=== PATIENT | male | born 1975 | race Caucasian/White ===

== ENCOUNTER 2018-05-03 17:19 | Emergency (ER) | payer MEDICAID ==
[2018-05-03] MEDS ORDERED: Acetaminophen/oxyCODONE 325-5 MG Tab PO ONE ×2 (18:19→19:17)
[2018-05-03] MEDS ORDERED: Levofloxacin 500 MG Tab PO ONE (18:23)
--- NOTE | 2018-05-03 18:30 | EDM.PDOC ---
ED HPI GENERAL MEDICAL PROBLEM - General Chief Complaint: Abdominal Pain Stated Complaint: STOMACH PAIN Time Seen by Provider: 05/03/18 18:15 Source of Information: Reports: Patient History Limitations: Reports: Other (incomplete medical records) - History of Present Illness INITIAL COMMENTS - FREE TEXT/NARRATIVE: 43 yo male from [place] who usually goes to [place] for his care presents with recent onset of bilateral testicular pain and swelling. He states he has had this in the past and was told he had epididymitis. He presented initially to the local clinic and was referred to the ER. He has not had vomiting, fever or injury. Pain is a little worse on the right than the left. No dysuria. Onset yesterday when he was forcing a wrench. Onset: Gradual Onset Date: 05/02/18 Duration: Day(s): (1+), Getting Worse, Waxing/Waning Location: Reports: Pelvis (scrotum) Quality: Reports: Other (cramping) Severity: Moderate Improves with: Reports: None Worsens with: Reports: Other (uncertain) Context: Reports: Other (see HPI) Associated Symptoms: Reports: No Other Symptoms. Denies: Fever/Chills, Nausea/ Vomiting Treatments SECOND BUTLER: Reports: Other (see below) (Toradol given in clinic without relief.) - Related Data Allergies Allergy/AdvReac Type Severity Reaction Status Date / Time No Known Allergies Allergy Verified 05/03/18 17:37 Home Meds: Home Meds NK [No Known Home Meds] 05/03/18 [History] Past Medical History - Past Health History Medical/Surgical History: Denies Medical/Surgical History Social & Family History - Tobacco Use Smoking Status *Q: Current Every Day Smoker Years of Tobacco use: 20 Packs/Tins Daily: 1 ED ROS GENERAL - Review of Systems Review Of Systems: See Below Constitutional: Reports: No Symptoms HEENT: Reports: No Symptoms Respiratory: Reports: No Symptoms Cardiovascular: Reports: No Symptoms Endocrine: Reports: No Symptoms GI/Abdominal: Reports: Abdominal Pain (low, cramping at times). Denies: Black Stool, Bloody Stool, Constipation, Diarrhea, Decreased Appetite, Distension, Hematemesis, Hematochezia, Melena, Vomiting : Reports: Pain (scrotal pain and swelling) Musculoskeletal: Reports: No Symptoms Skin: Reports: No Symptoms Neurological: Reports: No Symptoms Psychiatric: Reports: No Symptoms ED EXAM, RENAL/ - Physical Exam Exam: See Below Exam Limited By: No Limitations General Appearance: Alert, WD/WN, Mild Distress Eye Exam: Bilateral Eye: Normal Inspection Ears: Normal External Exam, Normal Canal, Hearing Grossly Normal, Normal TMs Nose: Normal Inspection, Normal Mucosa, No Blood Throat/Mouth: Normal Inspection, Normal Lips, Normal Oropharynx, Normal Voice, No Airway Compromise Head: Atraumatic, Normocephalic Neck: Normal Inspection, Non-Tender Respiratory/Chest: No Respiratory Distress, Lungs Clear, Normal Breath Sounds, No Accessory Muscle Use Cardiovascular: Regular Rate, Rhythm, No Edema GI/Abdominal: Normal Bowel Sounds, Soft (Male) Exam: Scrotal Swelling, Scrotum Tenderness (L), Scrotum Tenderness (R) , Testicular Tenderness (L), Testicular Tenderness (R), Other (Both testes seem enlarged and tender. Hernia not obviously present.). No: Inguinal Lymphadenopathy, Suprapubic Fullness, Testicular Mass, Urethral Discharge Back Exam: Normal Inspection Extremities: Normal Inspection, Normal Range of Motion, No Pedal Edema Neurological: Alert, Oriented, CN II-XII Intact, Normal Cognition, No Motor/ Sensory Deficits Psychiatric: Normal Affect, Normal Mood Skin Exam: Warm, Dry, Intact, Normal Color, No Rash Lymphatic: No Adenopathy Course - Vital Signs Text/Narrative:: US-good bilat. blood flow. No hernia. Epididymis enlarged. - Orders/Labs/Meds Orders: Active Orders 24 hr Category Date Time Status Scrotum and Contents [US] Stat Exams 05/03/18 18:23 Ordered CHLAMYDIA/GC AMPLIFICATION Routine Lab 05/03/18 18:37 Received Meds: Medications Discontinued Medications Generic Name Dose Route Start Last Admin Trade Name Kahlil PRN Reason Stop Dose Admin Levofloxacin 500 mg 05/03/18 18:23 05/03/18 18:41 Levaquin PO 05/03/18 18:24 500 mg ONETIME ONE Administration Oxycodone/Acetaminophen 1 tab 05/03/18 18:19 05/03/18 18:41 Percocet 325-5 Mg PO 05/03/18 18:20 1 tab ONETIME ONE Administration Oxycodone/Acetaminophen 1 tab 05/03/18 19:17 05/03/18 19:21 Percocet 325-5 Mg PO 05/03/18 19:18 1 tab ONETIME ONE Administration - Radiology Interpretation Free Text/Narrative:: Scrotal US- Departure - Departure Time of Disposition: 20:00 Disposition: Home, Self-Care 01 Condition: Fair Clinical Impression: Chronic epididymitis Clinical Impression: (Ruled Out): Gonococcal epididymo-orchitis, chronic - Discharge Information *PRESCRIPTION DRUG MONITORING PROGRAM REVIEWED*: No *COPY OF PRESCRIPTION DRUG MONITORING REPORT IN PATIENT ASHER: No Instructions: Epididymitis Referrals: PCP,None [Primary Care Provider] - Forms: ED Department Discharge Additional Instructions: Take Levaquin 500 mg every 24 hrs. Take ibuprofen 600 mg every 6 hrs +/- [place] for pain relief. F/U with urology to make sure your problem resolves. - My Orders Last 24 Hours: My Active Orders 05/03/18 18:23 Scrotum and Contents [US] Stat 05/03/18 18:37 CHLAMYDIA/GC AMPLIFICATION Routine - Assessment/Plan Last 24 Hours: My Active Orders 05/03/18 18:23 Scrotum and Contents [US] Stat 05/03/18 18:37 CHLAMYDIA/GC AMPLIFICATION Routine
--- NOTE | 2018-05-03 20:19 | CRLUS ---
INDICATION: Subacute onset bilateral testicular swelling and pain TECHNIQUE: Ultrasound of the scrotum and contents. Sonographic west-scale images were obtained with spectral and color Doppler waveform and spectral waveform analysis of the testicles. COMPARISON: None FINDINGS: Right testicle: 4.6 x 2.5 x 3.1 cm. Normal echotexture. No masses. No suspicious calcifications. Normal arterial and venous and blood flow using Doppler and spectral waveform analysis. Left testicle: 4.8 x 2.0 x 2.9 cm. Normal echotexture. No masses. No suspicious calcifications. Normal arterial and venous and blood flow using Doppler and spectral waveform analysis. Epididymis: Enlargement of the epididymal tails with increased blood flow bilaterally. Other: Small right hydrocele. Bilateral varicoceles. Scrotal wall is normal. IMPRESSION: Enlargement of the bilateral epididymal tails with increased blood flow concerning for bilateral epididymitis. Bilateral varicoceles. Small right hydrocele. No testicular torsion or intratesticular mass. Dictated by Stella Rockwell MD @ May 03 2018 8:12PM Signed by Dr. Stella Rockwell @ May 03 2018 8:17PM
--- NOTE | 2018-05-06 10:52 | CRLUS ---
Final Report: INDICATION: Subacute onset bilateral testicular swelling and pain TECHNIQUE: Ultrasound of the scrotum and contents. Sonographic west-scale images were obtained with spectral and color Doppler waveform and spectral waveform analysis of the testicles. COMPARISON: None FINDINGS: Right testicle: 4.6 x 2.5 x 3.1 cm. Normal echotexture. No masses. No suspicious calcifications. Normal arterial and venous and blood flow using Doppler and spectral waveform analysis. Left testicle: 4.8 x 2.0 x 2.9 cm. Normal echotexture. No masses. No suspicious calcifications. Normal arterial and venous and blood flow using Doppler and spectral waveform analysis. Epididymis: Enlargement of the epididymal tails with increased blood flow bilaterally. Other: Small right hydrocele. Bilateral varicoceles. Scrotal wall is normal. IMPRESSION: Enlargement of the bilateral epididymal tails with increased blood flow concerning for bilateral epididymitis. Bilateral varicoceles. Small right hydrocele. No testicular torsion or intratesticular mass. Dictated by Stella Rockwell MD @ May 03 2018 8:12PM Signed by: Stella Rockwell MD @05/03/2018 8:17:33 PM (Electronic Signature) MTDD
[2018-05-08 10:14] LABS: CHLAMYDIA TRACHOMATIS, NAA Negative (Negative); NEISSERIA GONORRHOEAE, NAA Negative (Negative)
== END 2018-05-03 20:10 | disposition home or self-care (01) ==
LOC: JP.ED 17:19
DX: N45.1 Epididymitis (principal); F17.210 Nicotine dependence, cigarettes, uncomplicated
CPT/HCPCS: 76870; 87491; 87591; 93976; 99284; A9270